=== PATIENT | female | born 1965 | race Caucasian/White ===

== ENCOUNTER 2017-10-20 12:55 | Outpatient (CLI) | payer OTHER ==
[2014-11-27 13:38] VITALS: BMI 61.9
== END 2017-10-20 12:56 | disposition home or self-care (01) ==
LOC: LAB 12:55
PROVIDERS: ATTEND Nurse Practitioner
DX: E03.9 Hypothyroidism, unspecified (principal); E11.40 Type 2 diabetes mellitus with diabetic neuropathy, unspecified; E53.8 Deficiency of other specified B group vitamins; E55.9 Vitamin D deficiency, unspecified; J01.90 Acute sinusitis, unspecified
CPT/HCPCS: 36415; 80053; 82043; 82306; 82607; 83036; 84443; 85025

== ENCOUNTER 2017-12-16 16:21 | Outpatient (CLI) ==
[2014-11-27 13:38] VITALS: BMI 61.9
== END 2017-12-16 16:22 | disposition home or self-care (01) ==
LOC: LAB 16:21
PROVIDERS: ATTEND Nurse Practitioner
DX: M25.50 Pain in unspecified joint (principal)
CPT/HCPCS: 36415; 84550; 85651; 86140; 86617

== ENCOUNTER 2018-04-04 07:45 | Outpatient (CLI) | payer OTHER ==
[2014-11-27 13:38] VITALS: BMI 61.9
--- NOTE | 2018-04-04 08:15 | DI ---
Exam: Three views of the right foot. Comparison: None available. Reason for exam: Foot pain. FINDINGS: No obvious fracture or malalignment is seen in the right foot. There is mild degenerative disease with calcaneal enthesiophyte formation. No unexpected calcific soft tissue density or radio paque retained foreign body. Impression: No acute fracture or dislocation is seen in the right foot with mild degenerative diseas e
== END 2018-04-04 07:46 | disposition home or self-care (01) ==
LOC: LAB 07:45
PROVIDERS: ATTEND Nurse Practitioner
DX: M79.671 Pain in right foot (principal); E03.9 Hypothyroidism, unspecified; E11.40 Type 2 diabetes mellitus with diabetic neuropathy, unspecified; E53.8 Deficiency of other specified B group vitamins; E55.9 Vitamin D deficiency, unspecified
CPT/HCPCS: 36415; 80048; 82306; 82607; 83036; 84439; 84443

== ENCOUNTER 2021-07-05 10:49 | Inpatient (IN) ==
--- NOTE | 2021-07-05 11:40 | ED.PDOC ---
General ED Provider: Dr. SWEETIE BADILLO Chief Complaint: Respiratory Complaint Stated Complaint: This 56-year-old female presents to the emergency room on the morning of July 05 complaining of a cough with green phlegm sputum production and nasal congestion. She states she has had a fever with the temperature is already up to 102 with associated diarrhea vomiting And abdominal pain. She has had associated chills shortness of air and generalized body aches States that her stomach arthur like it's on fire. States that she worked yesterday. States she has received both COVID Vaccines, most recent one last week. Time Seen by Provider: 07/05/21 11:40 Mode of Arrival: Walk-In Information Source: Patient Exam Limitations: No limitations Primary Care Provider: AJAY CHENG Nursing and Triage Documentation Reviewed and Agree: Yes Does patient meet sepsis criteria?: No System Inflammatory Response Syndrome: Not Applicable Sepsis Protocol: For patient's 13 years and over: Temp is 96.8 and below OR 101 and greater Pulse >90 BPM Resp >20/minute Acutely Altered Mental Status Are patient's symptoms suggestive of a new infection, such as: -Pneumonia -Skin, Soft Tissue -Endocarditis -UTI -Bone, Joint Infection -Implantable Device -Acute Abdominal Infection -Wound Infection -Meningitis -Blood Stream Catheter Infection -Unknown Review of Systems Review Of Systems Constitutional: Reports Diaphoresis, Weakness and Loss of appetite All Other Systems: Reviewed and Negative [facility] Medical History Diabetes mellitus Dysfunction of both eustachian tubes External otitis Hypothyroidism Sensorineural hearing loss (SNHL) of both ears TMJ (temporomandibular joint disorder) Social History Alcohol intake: never Substance use type: does not use Housing: house Seatbelt use: always 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 Water heater temperature set < 120 degrees: Yes Working smoke detector in home: Yes Fire extinguisher in home: Yes Carbon monoxide detector in home: Yes Surgical History History of section Mastoidectomy Status post endovenous radiofrequency ablation (RFA) of saphenous vein Female Reproductive History Menstrual Hx Hysterectomy: No Hx Tubal Ligation: Yes Physical Exam Physical Exam Appearance: Reports Ill-appearing and Obese Ill-appearing: Moderate Pain Distress: Moderate Eyes: Reports DENNY, EOMI and Conjunctiva clear ENT: Reports Ears normal, Nose normal and Oropharynx normal Neck: Supple Respiratory: Reports Airway patent, Breath sounds diminished and Respirations nonlabored Cardiovascular: Reports RRR, Pulses normal and No murmur GI/: Reports Soft, Tender and Other (morbidly obese) Musculoskeletal: Reports Normal strength Skin: Reports Warm and Dry Neurological: Reports Sensation intact, Motor intact, Reflexes intact, Cranial nerves intact, Alert and Oriented Psychiatric: Reports Affect appropriate Critical Care Note Critical Care Note Total Critical Care Time (mins): 60 Course Course Hematology/Chemistry: 07/05/21 11:55 07/05/21 11:55 Orders, Labs, Meds: Lab Review 07/05/21 07/05/21 07/05/21 11:55 11:55 12:02 WBC 8.15 RBC 5.14 Hgb 14.0 Hct 43.9 MCV 85.4 MCH 27.2 MCHC 31.9 RDW Coeff of Danny 15.9 H Plt Count 280 Immature Gran % (Auto) 0.5 Neut % (Auto) 73.9 Lymph % (Auto) 18.4 Floyd % (Auto) 6.4 Eos % (Auto) 0.4 Baso % (Auto) 0.4 Neut # (Auto) 6.0 Lymph # (Auto) 1.5 Floyd # (Auto) 0.5 Eos # (Auto) 0.0 Baso # (Auto) 0.0 Immature Gran # (Auto) 0.0 Puncture Site R rad Base Excess 3.2 H O2 Saturation 92.6 L ABG pH 7.47 H ABG pCO2 37.0 ABG pO2 61.0 L ABG HCO3 26.9 ABG Total CO2 28.0 H Donavan Test + Hemoglobin 0.6 Oxyhemoglobin 91.2 L Carboxyhemoglobin 0 L Total Hemoglobin 14.0 FiO2 % 21.0 Sodium 140.8 Potassium 3.75 Chloride 101.6 Carbon Dioxide 30.3 H Anion Gap 12.65 BUN 9.7 Creatinine 0.69 Estimated GFR (MDRD) 89.00 BUN/Creatinine Ratio 14.05 Glucose 161.4 H Calcium 8.87 Total Bilirubin 0.47 AST 56.8 H ALT 35.1 H Alkaline Phosphatase 104.8 Total Protein 7.91 Albumin 4.09 Globulin 3.82 Albumin/Globulin Ratio 1.07 Adenovirus (PCR) B. pertussis DNA (PCR) B.parapertussis DNA PCR C. pneumoniae DNA (PCR) Coronavirus OC43 (PCR) Coronavirus HKU1 (PCR) Coronavirus 229E (PCR) Coronavirus NL63 (PCR) Human Metapneumovir PCR Influenza Type A (PCR) Influenza B (RT-PCR) M. pneumoniae (PCR) Parainfluenza 1 (PCR) Parainfluenza 2 (PCR) Parainfluenza 3 (PCR) Parainfluenza 4 (PCR) RSV (PCR) Entero/Rhino (PCR) SARS-CoV-2 (PCR) 07/05/21 12:02 WBC RBC Hgb Hct MCV MCH MCHC RDW Coeff of Danny Plt Count Immature Gran % (Auto) Neut % (Auto) Lymph % (Auto) Floyd % (Auto) Eos % (Auto) Baso % (Auto) Neut # (Auto) Lymph # (Auto) Floyd # (Auto) Eos # (Auto) Baso # (Auto) Immature Gran # (Auto) Puncture Site Base Excess O2 Saturation ABG pH ABG pCO2 ABG pO2 ABG HCO3 ABG Total CO2 Donavan Test Hemoglobin Oxyhemoglobin Carboxyhemoglobin Total Hemoglobin FiO2 % Sodium Potassium Chloride Carbon Dioxide Anion Gap BUN Creatinine Estimated GFR (MDRD) BUN/Creatinine Ratio Glucose Calcium Total Bilirubin AST ALT Alkaline Phosphatase Total Protein Albumin Globulin Albumin/Globulin Ratio Adenovirus (PCR) Not detected B. pertussis DNA (PCR) Not detected B.parapertussis DNA PCR Not detected C. pneumoniae DNA (PCR) Not detected Coronavirus OC43 (PCR) Not detected Coronavirus HKU1 (PCR) Not detected Coronavirus 229E (PCR) Not detected Coronavirus NL63 (PCR) Not detected Human Metapneumovir PCR Not detected Influenza Type A (PCR) Not detected Influenza B (RT-PCR) Not detected M. pneumoniae (PCR) Not detected Parainfluenza 1 (PCR) Not detected Parainfluenza 2 (PCR) Not detected Parainfluenza 3 (PCR) Not detected Parainfluenza 4 (PCR) Not detected RSV (PCR) Not detected Entero/Rhino (PCR) Not detected SARS-CoV-2 (PCR) Detected H Orders Category Date Time Status ADMIT PATIENT INPATIENT .TO SCU (MONITORED BED) ADMISSION 07/05/21 15:21 Ordered ABG DRAW REQUEST Routine CARDIO 10/28/21 15:26 Ordered ABG DRAW REQUEST Stat CARDIO 07/05/21 11:43 Completed METERED DOSE INHALATION Routine CARDIO 07/05/21 11:44 Completed METERED DOSE INHALATION Routine CARDIO 07/05/21 15:28 Ordered OXYGEN Routine CARDIO 07/05/21 15:32 Ordered ACTIVITY .BR with BRP CARE 07/05/21 15:33 Ordered CONTINUOUS PULSE OX (NURSING) PULSEOX CARE 07/05/21 15:25 Ordered GIVE HS SNACK 2100 CARE 07/05/21 15:30 Ordered INTAKE & OUTPUT Q8HR CARE 07/05/21 15:33 Ordered TELEMETRY MONITORING TELE CARE 07/05/21 15:22 Ordered VITAL SIGNS Q4HR CARE 07/05/21 15:33 Ordered ADA 2200 FABI DIET DIETARY 07/05/21 Dinner Ordered HS SNACK DIETARY 07/05/21 Dinner Ordered ABG COOX Routine LAB 07/05/21 15:25 Ordered ABG COOX Stat LAB 07/05/21 12:02 Completed BLOOD CULTURE Routine LAB 07/05/21 15:34 Ordered C-REACTIVE PROTEIN Routine LAB 07/05/21 15:25 Ordered CBC W/ AUTO DIFF Stat LAB 07/05/21 11:55 Completed CMP [COMPREHENSIVE METABOLIC PANEL] Stat LAB 07/05/21 11:55 Completed D-DIMER Routine LAB 07/05/21 Ordered FERRITIN Routine LAB 07/05/21 Ordered Lactic Acid Dehydrogenase Routine LAB 07/05/21 Ordered PT WITH INR Routine LAB 07/05/21 15:25 Ordered RAPID STREP SCREEN [MOLECULAR GROUP A STREP] Stat LAB 07/05/21 11:41 Uncollected RESPIRATORY PANEL 2.1 (PCR) Stat LAB 07/05/21 12:02 Completed TROPONIN I Routine LAB 07/05/21 15:25 Ordered 1 gm/50 ml IV Daily Brandie MEDS 07/05/21 16:00 Ordered Ceftriaxone/D5w 1 gm Premix [Rocephin 1 gm/50 ml D5w] 1 gm in 50 ml IV DAILY Albuterol Inhaler(with Spacer) [Ventolin Hfa (Per Puff- MEDS 07/05/21 11:44 Discontinued with Spacer)] 2 puff IH ONCE STA Albuterol Inhaler(with Spacer) [Ventolin Hfa (Per Puff- MEDS 07/05/21 15:30 Ordered with Spacer)] 2 puff IH QID Azithromycin [Zithromax] MEDS 07/06/21 09:00 Ordered 500 mg PO DAILY Cholecalciferol (Vitamin D3) [Vitamin D] MEDS 07/05/21 15:30 Ordered 5,000 unit PO DAILY Dexamethasone Sod Phosphate [Decadron] MEDS 07/05/21 15:30 Ordered 6 mg IM DAILY Enoxaparin Sodium [Lovenox] MEDS 07/05/21 16:00 Ordered 40 mg SUBCUT DAILY Famotidine [Pepcid] MEDS 07/05/21 15:30 Ordered 40 mg PO BIDAC Ondansetron HCl/Pf [Zofran 4 mg/2 ml] MEDS 07/05/21 12:02 Discontinued 4 mg IVP ONCE STA Sodium Chloride 0.9% [Sodium Chloride] 1,000 ml MEDS 07/05/21 12:02 Discontinued IV BOLUS Zinc Sulfate [Zinc-220] MEDS 07/05/21 15:30 Ordered 220 mg PO DAILY RESUSCITATION STATUS Routine OTHERS 07/05/21 15:32 Ordered CHEST, 1V AP ONLY Stat RADS 07/05/21 12:[address] ABDOMEN/PELVIS WO CONTRAST Stat RADS 07/05/21 12:[address] CHEST W/O CONTRAST Stat RADS 07/05/21 12:02 Completed Medications Generic Name Dose Route Start Last Admin Trade Name Freq PRN Reason Stop Dose Admin Albuterol Sulfate 2 puff 07/05/21 15:30 Albuterol Sulfate (Ventolin Hfa) 18 Gm 1 Puff With Spacer IH QID BRANDIE Cholecalciferol 5,000 unit 07/05/21 15:30 Cholecalciferol (Vitamin D3) 1,000 Unit (25 Mcg) Tablet PO DAILY [facility] Dexamethasone Sodium Phosphate 6 mg 07/05/21 15:30 Dexamethasone Sod Phos 10 Mg/Ml Inj IM DAILY BRANDIE Famotidine 40 mg 07/05/21 15:30 Famotidine 20 Mg Tablet PO BIDAC BRANDIE Zinc Sulfate 220 mg 07/05/21 15:30 Zinc Sulfate 220 Mg Capsule PO DAILY BRANDIE Discontinued Medications Generic Name Dose Route Start Last Admin Trade Name Freq PRN Reason Stop Dose Admin Albuterol Sulfate 2 puff 07/05/21 11:44 07/05/21 12:25 Albuterol Sulfate (Ventolin Hfa) 18 Gm 1 Puff With Spacer IH 07/05/21 11:45 2 puff ONCE STA Administration Sodium Chloride 1,000 mls @ 1,000 mls/hr 07/05/21 12:02 07/05/21 13:03 Sodium Chloride IV 07/05/21 13:01 1,000 mls/hr BOLUS STA Administration Ondansetron HCl 4 mg 07/05/21 12:02 07/05/21 13:02 Ondansetron Hcl/Pf 4 Mg/2 Ml Sdv IVP 07/05/21 12:03 4 mg ONCE STA Administration Vital Signs: Temp Pulse Resp BP Pulse Ox 07/05/21 11:40 99.4 F 87 20 136/70 88 L Discharge Plan Discharge Patient Disposition: ADMITTED INPATIENT Discharge Problem: Pneumonia, COVID-19 Prescriptions: No Action levothyroxine [Synthroid] 100 MCG tablet 100 mcg PO DAILY RF: 0 metformin 500 MG tablet,ER mary alice.retention 24 hr 500 mg PO BID RF: 0 hydrocodone-acetaminophen 10-325 mg tablet 1 tab PO QID PRN (Reason: Pain) RF: 0 gabapentin 300 mg capsule 300 mg PO DAILY RF: 0 omeprazole 20 mg capsule,delayed release(DR/EC) 20 mg PO DAILY RF: 0 diclofenac sodium 75 mg Tablet,Delayed Release (Dr/Ec) 75 mg PO BID RF: 0 furosemide 20 mg tablet 40 mg PO DAILY RF: 0 polyethylene glycol 3350 17 gram/dose powder 17 g PO DAILY PRN (Reason: Constipation) RF: 0 docusate sodium [Doculace] 100 mg Capsule 100 - 300 mg PO BEDTIME PRN (Reason: Constipation) RF: 0 gabapentin 300 mg capsule 600 mg PO BEDTIME RF: 0 ergocalciferol (vitamin D2) [Vitamin D2] 1,250 mcg (50,000 unit) capsule 50,000 unit PO WEEKLY RF: 0 insulin aspart U-100 [Novolog Flexpen U-100 Insulin] 100 unit/mL (3 mL) insulin pen 5 unit SUBCUT TID PRN (Reason: Hyperglycemia) RF: 0 Basaglar KwikPen U-100 Insulin 100 unit/mL (3 mL) insulin pen 24 unit SUBCUT QDAY RF: 0 diazepam 5 mg tablet 10 mg PO Q6-8H PRN (Reason: tmj) Qty: 90 RF: 3 ED Provider: SWEETIE BADILLO Condition: Stable Physician Progress Note: []
[2021-07-05] MEDS ORDERED: VENTOLIN HFA (PER PUFF-WITH SPACER) IH STA (11:44)
[2021-07-05 12:02] LABS: BASOPHILS % (AUTO) 0.4 % (0.0-3.0); EOSINOPHILS % (AUTO) 0.4 % (0.0-7.0); HEMATOCRIT 43.9 % (37.0-47.0); IMMATURE GRANULOCYTE % (AUTO) 0.5 % (0.0-5.0); LYMPHOCYTES # (AUTO) 1.5 K/uL (0.60-3.4); LYMPHOCYTES % (AUTO) 18.4 (10.0-50.0); MEAN CORPUSCULAR HEMOGLOBIN 27.2 pg (27.0-31.0); MEAN CORPUSCULAR HGB CONC 31.9 (31.8-35.4); MEAN CORPUSCULAR VOLUME 85.4 fl (81.0-99.0); MONOCYTES # (AUTO) 0.5 K/uL (0.4-2.0); MONOCYTES % (AUTO) 6.4 (0-10); NEUTROPHILS % (AUTO) 73.9 % (42.2-75.2); PLATELET COUNT 280 10^3/uL (140-440); RDW COEFFICIENT OF VARIATION 15.9 % (11.6-14.8); RED BLOOD COUNT 5.14 10^6/ul (4.20-5.40); WHITE BLOOD COUNT 8.15 K/ul (4.6-10.2)
[2021-07-05] MEDS ORDERED: SODIUM CHLORIDE 1,000 ML IV STA (12:02)
[2021-07-05] MEDS ORDERED: ZOFRAN 4 MG/2 ML IVP STA (12:02)
[2021-07-05 12:09] LABS: BORDETELLA PARAPERTUSSIS (PCR) NOT DETECTED (NOT DETECT); BORDETELLA PERTUSSIS (PCR) NOT DETECTED (NOT DETECT); CHLAMYDIA PNEUMONIAE (PCR) NOT DETECTED (NOT DETECT); CORONAVIRUS 229E (PCR) NOT DETECTED (NOT DETECT); CORONAVIRUS HKU1 (PCR) NOT DETECTED (NOT DETECT); CORONAVIRUS NL63 (PCR) NOT DETECTED (NOT DETECT); CORONAVIRUS OC43 (PCR) NOT DETECTED (NOT DETECT); HUMAN METAPNEUMOVIRUS (PCR) NOT DETECTED (NOT DETECT); HUMAN RHINOVIRUS/ENTEROV (PCR) NOT DETECTED (NOT DETECT); INFLUENZA B (PCR) NOT DETECTED (NOT DETECT); MYCOPLASMA PNEUMONIAE (PCR) NOT DETECTED (NOT DETECT); PARAINFLUENZA VIRUS 1 (PCR) NOT DETECTED (NOT DETECT); PARAINFLUENZA VIRUS 2 (PCR) NOT DETECTED (NOT DETECT); PARAINFLUENZA VIRUS 3 (PCR) NOT DETECTED (NOT DETECT); PARAINFLUENZA VIRUS 4 (PCR) NOT DETECTED (NOT DETECT); RESPIRATORY SYNCYTIAL V (PCR) NOT DETECTED (NOT DETECT)
[2021-07-05 12:14] LABS: ALANINE AMINOTRANSFERASE 35.1 U/L (0-35); ALBUMIN 4.09 g/dL (3.5-5.0); ALKALINE PHOSPHATASE 104.8 U/L (38-126); ASPARTATE AMINO TRANSFERASE 56.8 U/L (14-36); BILIRUBIN,TOTAL 0.47 mg/dL (0.2-1.3); BLOOD UREA NITROGEN 9.7 mg/dL (7-17); CALCIUM 8.87 mg/dL (8.4-10.2); CARBON DIOXIDE 30.3 mmol/L (22-30.0); CHLORIDE 101.6 mmol/L (98-107); CREATININE 0.69 mg/dL (0.60-1.30); GLUCOSE 161.4 mg/dL (74-106); POTASSIUM 3.75 mmol/L (3.5-5.1); SODIUM 140.8 mmol/L (134.5-145); TOTAL PROTEIN 7.91 g/dL (6.3-8.2)
--- NOTE | 2021-07-05 12:19 | DI ---
EXAM: Chest one view HISTORY: Shortness of breath COMPARISON: 08/14/2020 TECHNIQUE: Single view of the chest was performed FINDINGS: Bilateral bronchovascular prominence. There is no pleural effusion or pneumothorax. The heart is borderline enlarged in size. The mediastinal contour is normal. There are no acute abnorma lities of the bones. IMPRESSION: Bilateral bronchovascular prominence could relate to mild pulmonary vascular congestion or interstitial pneumonitis.
[2021-07-05 12:20] LABS: ABG PH 7.47 (7.35-7.45); BEecf 3.2 (-2.0-3.0); COHb 0 (0.5-1.5); HCO3 26.9 (21-28); MetHb 0.6 (0-1.5)
[2021-07-05 12:21] LABS: ABG O2 HGB 91.2 % (95-100); sO2 92.6 % (94-98)
[2021-07-05 12:56] LABS: ADENOVIRUS (PCR) NOT DETECTED (NOT DETECT)
[2021-07-05 13:05] LABS: SARS_COV_2 (PCR) DETECTED (NOT DETECT)
--- NOTE | 2021-07-05 13:08 | CT ---
EXAM: CT chest without contrast. HISTORY: Cough, dyspnea. COMPARISON: Radiograph earlier the same day. TECHNIQUE: Multiple axial images of the chest were obtained without intravenous contrast. Images we re reformatted in the sagittal and coronal planes. FINDINGS: Limited assessment for lymphadenopathy without contrast. Heart size normal. Trace pericardial effusion. No coronary artery calcifications. Multifocal nodular consolidation throughout both lungs, greatest in the right lower lobe. Difficult to exclude some areas of cavitation, although this is uncertain. There are no pleural effusion or pn eumothorax. Limited images of the upper abdomen demonstrate fatty liver. No acute osseous abnormality. Degenerative changes in the spine. IMPRESSION: Bilateral pneumonia. Difficult to exclude areas of cavitation. Correlate for atypical infectious pr ocess. Follow-up in 4-6 weeks recommended for reassessment All CT scans are performed using dose optimization techniques as appropriate to the performed exam an d include at least one of the following: Automated exposure control, adjustment of the mA and/or kV according t o size, and the use of iterative reconstruction technique.
--- NOTE | 2021-07-05 13:10 | CT ---
EXAM: CT abdomen pelvis without contrast HISTORY: Pain, nausea, vomiting, diarrhea COMPARISON: None TECHNIQUE: CT abdomen pelvis performed without intravenous contrast. Coronal and sagittal reformatt ed images obtained. FINDINGS: Please refer to separate report CT chest regarding findings in the lower chest, noting num erous bilateral nodular infiltrates. Motion artifact limits evaluation. No free air. No acute abno rmalities of the bones. Degenerative change in the spine. Liver is enlarged. Liver diffusely decre ased in attenuation. Patient status post cholecystectomy. Pancreas unremarkable. Spleen unremarkab le. Adrenals unremarkable. No hydronephrosis or nephrolithiasis. No calculi visualized in normal c ourse of the ureters. Bladder unremarkable. Aorta normal in caliber. Mild atherosclerosis. Cystic lesion near the midline pelvis that likely arises from the right ovary and measures 7.0 x 4.0 cm. T his may have a internal septation. No lymphadenopathy or ascites. Small hiatal hernia. No dilated loops small bowel. Appendix appears normal. Colon unremarkable. IMPRESSION: 1. No acute inflammatory process identified in the abdomen or pelvis. 2. 7 cm pelvic cystic lesion, likely arising from the right ovary and may be complicated. This is a bnormally enlarged. Recommend correlation with transabdominal and transvaginal pelvic ultrasound as the next step in evaluation. Recommend gynecologic consultation 3. Hepatic steatosis. Hepatomegaly. 4. Small hiatal hernia. All CT scans are performed using dose optimization techniques as appropriate to the performed exam an d include at least one of the following: Automated exposure control, adjustment of the mA and/or kV according t o size, and the use of iterative reconstruction technique.
[2021-07-05] MEDS ORDERED: DECADRON IM SCH (15:30)
[2021-07-05] MEDS ORDERED: VENTOLIN HFA (PER PUFF-WITH SPACER) IH SCH (15:30)
[2021-07-05 16:08] LABS: ABG PH 7.52 (7.35-7.45)
[2021-07-05 16:10] LABS: BEecf 2.4 (-2.0-3.0); COHb 4.2 (0.5-1.5); HCO3 25.3 (21-28); MetHb 0.2 (0-1.5); TCO2 26.3 (19-24); sO2 99.8 % (94-98); tHb 13.5 g/dl (11.7-17.4)
[2021-07-05 16:25] LABS: PROTHROMBIN TIME 9.9 SEC (9.3-11.0)
[2021-07-05 17:27] VITALS: BMI 59.7
[2021-07-05] MEDS: ZINC-220 PO SCH (17:56)
[2021-07-05] MEDS: VITAMIN D PO SCH (17:56)
[2021-07-05] MEDS: ZITHROMAX PO SCH (17:56)
[2021-07-05] MEDS: PEPCID PO SCH ×2 (17:56→17:57)
[2021-07-05] MEDS: LOVENOX SUBCUT SCH (17:57)
[2021-07-05] MEDS: ROCEPHIN 1 GM/50 ML D5W 1 GM/50 ML BAG IV SCH (17:57)
[2021-07-05] MEDS: VENTOLIN HFA (PER PUFF-WITH SPACER) IH SCH (19:50)
[2021-07-05] MEDS: VEKLURY 200 MG in SODIUM CHLORIDE 250 ML IV ONE ×2 (20:03→21:10)
[2021-07-05] MEDS ORDERED: NORCO 10-325 PO PRN (21:52)
[2021-07-05] MEDS ORDERED: LASIX TAB PO PRN (21:52)
[2021-07-05] MEDS ORDERED: IMODIUM PO STA (21:59)
[2021-07-05] MEDS ORDERED: LACTATED RINGERS 1,000 ML IV SCH (22:00)
[2021-07-05] MEDS: ZOFRAN 4 MG/2 ML IVP PRN (22:16)
[2021-07-05] MEDS: SODIUM CHLORIDE 1,000 ML IV SCH (23:44)
[2021-07-06] MEDS: IMODIUM PO PRN ×2 (04:00→10:43)
[2021-07-06] MEDS: VENTOLIN HFA (PER PUFF-WITH SPACER) IH SCH ×4 (04:30→19:00)
[2021-07-06 04:44] LABS: ABG PH 7.34 (7.35-7.45); BEecf -0.4 (-2.0-3.0); COHb 0 (0.5-1.5); HCO3 25.4 (21-28)
[2021-07-06 04:45] LABS: MetHb 0.4 (0-1.5); TCO2 26.8 (19-24); sO2 94.2 % (94-98); tHb 21.4 g/dl (11.7-17.4)
[2021-07-06 04:46] LABS: ABG O2 HGB 92.5 % (95-100)
[2021-07-06 05:42] LABS: BASOPHILS % (AUTO) 0.2 % (0.0-3.0); HEMATOCRIT 39.5 % (37.0-47.0); HEMOGLOBIN 12.1 g/dl (12.0-16.0); IMMATURE GRANULOCYTE % (AUTO) 0.4 % (0.0-5.0); LYMPHOCYTES # (AUTO) 0.8 K/uL (0.60-3.4); LYMPHOCYTES % (AUTO) 17.1 (10.0-50.0); MEAN CORPUSCULAR HEMOGLOBIN 26.5 pg (27.0-31.0); MEAN CORPUSCULAR HGB CONC 30.6 (31.8-35.4); MEAN CORPUSCULAR VOLUME 86.6 fl (81.0-99.0); MONOCYTES # (AUTO) 0.2 K/uL (0.4-2.0); MONOCYTES % (AUTO) 5.3 (0-10); NEUTROPHILS # (AUTO) 3.5 K/ul (2.0-6.9); PLATELET COUNT 240 10^3/uL (140-440); RED BLOOD COUNT 4.56 10^6/ul (4.20-5.40); WHITE BLOOD COUNT 4.57 K/ul (4.6-10.2)
[2021-07-06 05:58] LABS: ALANINE AMINOTRANSFERASE 29.5 U/L (0-35); ALKALINE PHOSPHATASE 85.5 U/L (38-126); ASPARTATE AMINO TRANSFERASE 45.9 U/L (14-36); BILIRUBIN,TOTAL 0.32 mg/dL (0.2-1.3); BLOOD UREA NITROGEN 9.1 mg/dL (7-17); CALCIUM 8.03 mg/dL (8.4-10.2); CARBON DIOXIDE 27.6 mmol/L (22-30.0); CHLORIDE 106.1 mmol/L (98-107); CREATININE 0.63 mg/dL (0.60-1.30); POTASSIUM 3.76 mmol/L (3.5-5.1); SODIUM 140.6 mmol/L (134.5-145); TOTAL PROTEIN 6.79 g/dL (6.3-8.2)
[2021-07-06] MEDS: PEPCID PO SCH ×2 (06:17→17:19)
[2021-07-06] MEDS: SODIUM CHLORIDE 1,000 ML IV SCH ×2 (06:17→16:16)
[2021-07-06] MEDS: SYNTHROID PO SCH (06:17)
[2021-07-06 06:33] LABS: PROTHROMBIN TIME 9.7 SEC (9.3-11.0)
[2021-07-06 06:37] LABS: TROPONIN I < 0.012 ng/ml (0.0000-0.120)
[2021-07-06] MEDS: ROCEPHIN 1 GM/50 ML D5W 1 GM/50 ML BAG IV SCH (08:08)
[2021-07-06] MEDS: VITAMIN D PO SCH (08:09)
[2021-07-06] MEDS: NEURONTIN PO SCH ×2 (08:10→20:52)
[2021-07-06] MEDS: ZINC-220 PO SCH (08:10)
[2021-07-06] MEDS: ZITHROMAX PO SCH (08:10)
[2021-07-06] MEDS: LOVENOX SUBCUT SCH (08:10)
[2021-07-06] MEDS: DECADRON IVP SCH (08:14)
[2021-07-06] MEDS: ZOFRAN 4 MG/2 ML IVP PRN (08:38)
[2021-07-06] MEDS ORDERED: PHENERGAN TAB PO PRN (09:39)
[2021-07-06] MEDS: BENTYL PO SCH ×4 (10:43→20:52)
[2021-07-06] MEDS: PROTONIX PO SCH (10:44)
[2021-07-06] MEDS: VEKLURY 100 MG in SODIUM CHLORIDE 250 ML IV SCH (11:09)
[2021-07-06] MEDS: HUMULIN R SUBCUT PRN ×3 (12:23→20:58)
--- NOTE | 2021-07-06 15:44 | PCM.PROG ---
Date Seen by Provider: 07/06/21 Time Seen by Provider: 10:00 Subjective: Breathing not too much trouble, more GI issues with nausea and diarrhea. Objective: Vitals: T=97.8 F, P=67, R=20, ZW=091/67, SPO2=87 HEENT: [WNL] Neck: WNL Lungs: rhonchi, no wheezes CVS: [RRR, no m] Abdomen: [obese, soft] Extremities: [intact] Neurological: [intact] Skin: [wnl] Lab/Tests/Diagnostic Imaging: [see chart, no acute problems of concern] (1) Pneumonia due to COVID-19 virus: Status: Acute Code(s): U07.1 - COVID-19; J12.82 - Pneumonia due to coronavirus disease 2019 SNOMED Code(s): 649138829336869586 Assessment: Maintaining good oxygen levels on 2 L per NC. Good air movement. Plan: Continue same treatment plan, monitor labs.
[2021-07-07] MEDS: SODIUM CHLORIDE 1,000 ML IV SCH ×4 (00:04→21:04)
[2021-07-07] MEDS: VENTOLIN HFA (PER PUFF-WITH SPACER) IH SCH ×4 (04:40→20:00)
[2021-07-07 04:41] LABS: ABG O2 HGB 95.4 % (95-100); ABG PH 7.43 (7.35-7.45); BEecf 1.6 (-2.0-3.0); COHb 0 (0.5-1.5); HCO3 25.9 (21-28); MetHb 0 (0-1.5); TCO2 27.1 (19-24); sO2 97.7 % (94-98); tHb 11.2 g/dl (11.7-17.4)
[2021-07-07 05:27] LABS: HEMATOCRIT 37.5 % (37.0-47.0); HEMOGLOBIN 11.8 g/dl (12.0-16.0); IMMATURE GRANULOCYTE % (AUTO) 0.7 % (0.0-5.0); LYMPHOCYTES # (AUTO) 1.2 K/uL (0.60-3.4); MEAN CORPUSCULAR HEMOGLOBIN 27.1 pg (27.0-31.0); MEAN CORPUSCULAR HGB CONC 31.5 (31.8-35.4); MEAN CORPUSCULAR VOLUME 86.2 fl (81.0-99.0); MONOCYTES # (AUTO) 0.5 K/uL (0.4-2.0); MONOCYTES % (AUTO) 8.6 (0-10); NEUTROPHILS # (AUTO) 4.1 K/ul (2.0-6.9); NEUTROPHILS % (AUTO) 69.9 % (42.2-75.2); PLATELET COUNT 250 10^3/uL (140-440); RDW COEFFICIENT OF VARIATION 16.2 % (11.6-14.8); RED BLOOD COUNT 4.35 10^6/ul (4.20-5.40)
[2021-07-07 05:45] LABS: ALBUMIN 3.12 g/dL (3.5-5.0); ALKALINE PHOSPHATASE 77.1 U/L (38-126); ASPARTATE AMINO TRANSFERASE 37.4 U/L (14-36); BLOOD UREA NITROGEN 9.2 mg/dL (7-17); CALCIUM 8.15 mg/dL (8.4-10.2); CARBON DIOXIDE 25.6 mmol/L (22-30.0); CHLORIDE 109.2 mmol/L (98-107); CREATININE 0.66 mg/dL (0.60-1.30); GLUCOSE 183.3 mg/dL (74-106); POTASSIUM 3.53 mmol/L (3.5-5.1); SODIUM 142.4 mmol/L (134.5-145); TOTAL PROTEIN 6.33 g/dL (6.3-8.2)
[2021-07-07 06:05] LABS: LYMPHOCYTES % (AUTO) 20.8 (10.0-50.0)
[2021-07-07 06:23] LABS: TROPONIN I < 0.012 ng/ml (0.0000-0.120)
[2021-07-07] MEDS: PEPCID PO SCH ×2 (06:28→16:37)
[2021-07-07] MEDS: BENTYL PO SCH ×4 (06:29→21:00)
[2021-07-07] MEDS: HUMULIN R SUBCUT PRN ×4 (06:29→21:01)
[2021-07-07] MEDS: PROTONIX PO SCH (06:29)
[2021-07-07] MEDS: SYNTHROID PO SCH (06:30)
[2021-07-07 06:58] LABS: PROTHROMBIN TIME 10.4 SEC (9.3-11.0)
[2021-07-07] MEDS: ROCEPHIN 1 GM/50 ML D5W 1 GM/50 ML BAG IV SCH (08:02)
[2021-07-07] MEDS: DECADRON IVP SCH (08:06)
[2021-07-07 08:17] LABS: C-REACTIVE PROTEIN 24 mg/L (0-10)
[2021-07-07] MEDS: NEURONTIN PO SCH ×2 (09:10→21:00)
[2021-07-07] MEDS: ZINC-220 PO SCH (09:10)
[2021-07-07] MEDS: VITAMIN D PO SCH (09:10)
[2021-07-07] MEDS: ZITHROMAX PO SCH (09:10)
[2021-07-07] MEDS: LOVENOX SUBCUT SCH (09:11)
[2021-07-07] MEDS: VEKLURY 100 MG in SODIUM CHLORIDE 250 ML IV SCH (11:45)
[2021-07-07] MEDS: ROBITUSSIN DM SYRUP PO PRN (21:43)
[2021-07-08] MEDS: VENTOLIN HFA (PER PUFF-WITH SPACER) IH SCH ×4 (04:30→19:35)
[2021-07-08 05:57] LABS: HEMATOCRIT 39.4 % (37.0-47.0); MEAN CORPUSCULAR HEMOGLOBIN 26.4 pg (27.0-31.0); MEAN CORPUSCULAR HGB CONC 30.5 (31.8-35.4); MEAN CORPUSCULAR VOLUME 86.8 fl (81.0-99.0); PLATELET COUNT 260 10^3/uL (140-440); RDW COEFFICIENT OF VARIATION 16.1 % (11.6-14.8); RED BLOOD COUNT 4.54 10^6/ul (4.20-5.40); WHITE BLOOD COUNT 6.73 K/ul (4.6-10.2)
[2021-07-08 06:08] LABS: ALANINE AMINOTRANSFERASE 29.2 U/L (0-35); ALBUMIN 3.1 g/dL (3.5-5.0); ALKALINE PHOSPHATASE 71.8 U/L (38-126); ASPARTATE AMINO TRANSFERASE 35.9 U/L (14-36); BILIRUBIN,TOTAL 0.29 mg/dL (0.2-1.3); BLOOD UREA NITROGEN 11.7 mg/dL (7-17); CALCIUM 8.2 mg/dL (8.4-10.2); CARBON DIOXIDE 26.3 mmol/L (22-30.0); CHLORIDE 109.5 mmol/L (98-107); CREATININE 0.69 mg/dL (0.60-1.30); GLUCOSE 175.9 mg/dL (74-106); POTASSIUM 3.74 mmol/L (3.5-5.1); TOTAL PROTEIN 6.27 g/dL (6.3-8.2)
[2021-07-08 06:09] LABS: PROTHROMBIN TIME 10.4 SEC (9.3-11.0)
[2021-07-08] MEDS: SODIUM CHLORIDE 1,000 ML IV SCH ×3 (06:21→22:48)
[2021-07-08] MEDS: BENTYL PO SCH ×4 (06:24→20:50)
[2021-07-08] MEDS: HUMULIN R SUBCUT PRN ×4 (06:24→20:51)
[2021-07-08] MEDS: PROTONIX PO SCH (06:24)
[2021-07-08] MEDS: PEPCID PO SCH ×2 (06:24→17:32)
[2021-07-08 06:42] LABS: FERRITIN 54.1 ng/mL (11.1-264.0)
[2021-07-08 06:55] LABS: ANISOCYTOSIS NOT PRESENT (NOT PRESENT)
[2021-07-08] MEDS: ROCEPHIN 1 GM/50 ML D5W 1 GM/50 ML BAG IV SCH (09:13)
[2021-07-08] MEDS: ZINC-220 PO SCH (09:14)
[2021-07-08] MEDS: VITAMIN D PO SCH (09:14)
[2021-07-08] MEDS: DECADRON IVP SCH (09:14)
[2021-07-08] MEDS: NEURONTIN PO SCH ×2 (09:14→20:51)
[2021-07-08] MEDS: SYNTHROID PO SCH (09:17)
[2021-07-08] MEDS: LOVENOX SUBCUT SCH (09:18)
[2021-07-08] MEDS: VEKLURY 100 MG in SODIUM CHLORIDE 250 ML IV SCH (12:26)
[2021-07-08] MEDS: ROBITUSSIN DM SYRUP PO PRN (13:49)
[2021-07-09] MEDS: VENTOLIN HFA (PER PUFF-WITH SPACER) IH SCH ×4 (04:25→20:15)
[2021-07-09 05:30] LABS: HEMATOCRIT 39.2 % (37.0-47.0); HEMOGLOBIN 12.2 g/dl (12.0-16.0); MEAN CORPUSCULAR HEMOGLOBIN 26.9 pg (27.0-31.0); MEAN CORPUSCULAR HGB CONC 31.1 (31.8-35.4); MEAN CORPUSCULAR VOLUME 86.3 fl (81.0-99.0); PLATELET COUNT 254 10^3/uL (140-440); RED BLOOD COUNT 4.54 10^6/ul (4.20-5.40); WHITE BLOOD COUNT 6.34 K/ul (4.6-10.2)
[2021-07-09] MEDS: PROTONIX PO SCH (05:46)
[2021-07-09] MEDS: PEPCID PO SCH ×2 (05:46→17:17)
[2021-07-09] MEDS: BENTYL PO SCH ×4 (05:47→20:16)
[2021-07-09] MEDS: SYNTHROID PO SCH (05:47)
[2021-07-09 05:48] LABS: ALANINE AMINOTRANSFERASE 28.7 U/L (0-35); ALBUMIN 3.04 g/dL (3.5-5.0); ALKALINE PHOSPHATASE 69.7 U/L (38-126); ANISOCYTOSIS NOT PRESENT (NOT PRESENT); ASPARTATE AMINO TRANSFERASE 31.9 U/L (14-36); BILIRUBIN,TOTAL 0.27 mg/dL (0.2-1.3); CALCIUM 7.97 mg/dL (8.4-10.2); CARBON DIOXIDE 28.2 mmol/L (22-30.0); CHLORIDE 107.2 mmol/L (98-107); CREATININE 0.69 mg/dL (0.60-1.30); POTASSIUM 3.89 mmol/L (3.5-5.1); SODIUM 139.6 mmol/L (134.5-145); TOTAL PROTEIN 6.01 g/dL (6.3-8.2)
[2021-07-09 06:03] LABS: PROTHROMBIN TIME 10.4 SEC (9.3-11.0)
[2021-07-09] MEDS: HUMULIN R SUBCUT PRN ×4 (06:12→20:32)
[2021-07-09 06:20] LABS: FERRITIN 37.9 ng/mL (11.1-264.0)
[2021-07-09] MEDS: ROCEPHIN 1 GM/50 ML D5W 1 GM/50 ML BAG IV SCH (08:28)
[2021-07-09] MEDS: ZINC-220 PO SCH (08:51)
[2021-07-09] MEDS: VITAMIN D PO SCH (08:52)
[2021-07-09] MEDS: NEURONTIN PO SCH ×2 (08:52→20:15)
[2021-07-09] MEDS: DECADRON IVP SCH (08:54)
[2021-07-09] MEDS: LOVENOX SUBCUT SCH (08:58)
--- NOTE | 2021-07-09 10:49 | PN ---
DATE OF VISIT: 07/08/2021 SUBJECTIVE: Ana is admitted with COVID pneumonia. She says that her breathing is "just fine". She has no complaints this morning. No nursing staff concerns. OBJECTIVE: VITALS: Temperature 98.8, pulse 90, respiratory rate 25, blood pressure 130/90. REVIEW OF SYSTEMS: Denies headaches, visual changes, tinnitus or chest pain. Positive for shortness of breath with exertion. No hemoptysis, abdominal pain, blood in the stool, urinary symptoms or seizures. PHYSICAL EXAMINATION: HEENT: Pupils are round. NECK: Supple. CHEST: Scattered rhonchi. CARDIOVASCULAR: Regular rate and rhythm. ABDOMEN: Soft, nontender. Obese. EXTREMITIES: Distal extremities without cyanosis or edema. IMPRESSION: 1. COVID pneumonia PLAN: 1. She seems to have good oxygenation 2. Check Labs in AM 3. I think tomorrow is her last day of Remdesivir MTDD
[2021-07-09] MEDS: VEKLURY 100 MG in SODIUM CHLORIDE 250 ML IV SCH (11:51)
[2021-07-09 12:16] LABS: C-REACTIVE PROTEIN 4 mg/L (0-10)
--- NOTE | 2021-07-09 18:56 | PCM.PROG ---
Date Seen by Provider: 07/09/21 Time Seen by Provider: 10:00 Subjective: Feeling better, wants to go home, today is last remdesivir dose. Objective: Vitals: T=97.6 F, P=55, R=24, FM=573/79, SPO2=94 HEENT: [WNL] Neck: [supple] Lungs: Few rhonchi, o/w clear[] CVS: RRR, no m Abdomen: [soft, obese] Extremities: [intact] Neurological: [intact] Skin: intact] Lab/Tests/Diagnostic Imaging: [Labs unremarkable.] (1) Pneumonia due to COVID-19 virus: Status: Acute Code(s): U07.1 - COVID-19; J12.82 - Pneumonia due to coronavirus disease 2019 SNOMED Code(s): 330416313691693859 Assessment: COVID pneumonia, improving, still oxygen dependent at 2 L per NC Plan: 3 step pulse ox test to see if can be d/c since remdesivir completed. If not, can perhaps arrange home oxygen.
[2021-07-09] MEDS: SODIUM CHLORIDE 1,000 ML IV SCH (20:02)
[2021-07-10 05:26] LABS: BASOPHILS % (AUTO) 0.2 % (0.0-3.0); EOSINOPHILS % (AUTO) 0.1 % (0.0-7.0); HEMATOCRIT 38.2 % (37.0-47.0); IMMATURE GRANULOCYTE # (AUTO) 0.1 (0.0-1.0); IMMATURE GRANULOCYTE % (AUTO) 1.3 % (0.0-5.0); LYMPHOCYTES # (AUTO) 1.7 K/uL (0.60-3.4); LYMPHOCYTES % (AUTO) 19.7 (10.0-50.0); MEAN CORPUSCULAR HEMOGLOBIN 26.8 pg (27.0-31.0); MEAN CORPUSCULAR HGB CONC 31.4 (31.8-35.4); MEAN CORPUSCULAR VOLUME 85.5 fl (81.0-99.0); MONOCYTES # (AUTO) 0.6 K/uL (0.4-2.0); MONOCYTES % (AUTO) 6.7 (0-10); NEUTROPHILS # (AUTO) 6.1 K/ul (2.0-6.9); PLATELET COUNT 267 10^3/uL (140-440); RDW COEFFICIENT OF VARIATION 15.9 % (11.6-14.8); RED BLOOD COUNT 4.47 10^6/ul (4.20-5.40); WHITE BLOOD COUNT 8.46 K/ul (4.6-10.2)
[2021-07-10 05:39] LABS: ALANINE AMINOTRANSFERASE 27.7 U/L (0-35); ALBUMIN 3.17 g/dL (3.5-5.0); ALKALINE PHOSPHATASE 67.2 U/L (38-126); ASPARTATE AMINO TRANSFERASE 27.7 U/L (14-36); BILIRUBIN,TOTAL 0.25 mg/dL (0.2-1.3); BLOOD UREA NITROGEN 17.1 mg/dL (7-17); CALCIUM 8.19 mg/dL (8.4-10.2); CARBON DIOXIDE 28.7 mmol/L (22-30.0); CREATININE 0.79 mg/dL (0.60-1.30); GLUCOSE 225.6 mg/dL (74-106); POTASSIUM 4.1 mmol/L (3.5-5.1); SODIUM 140.1 mmol/L (134.5-145); TOTAL PROTEIN 6.2 g/dL (6.3-8.2)
[2021-07-10 05:43] LABS: PROTHROMBIN TIME 10.4 SEC (9.3-11.0)
[2021-07-10] MEDS: BENTYL PO SCH (05:49)
[2021-07-10] MEDS: SYNTHROID PO SCH (05:50)
[2021-07-10] MEDS: PEPCID PO SCH (05:50)
[2021-07-10] MEDS: PROTONIX PO SCH (05:50)
[2021-07-10] MEDS: SODIUM CHLORIDE 1,000 ML IV SCH (05:51)
[2021-07-10] MEDS: HUMULIN R SUBCUT PRN (05:55)
[2021-07-10 06:10] VITALS: BP 145/69; TEMP 97.3
[2021-07-10 06:14] LABS: FERRITIN 31.2 ng/mL (11.1-264.0)
[2021-07-10 06:31] LABS: C-REACTIVE PROTEIN 2 mg/L (0-10)
[2021-07-10] MEDS: VENTOLIN HFA (PER PUFF-WITH SPACER) IH SCH ×2 (07:00→10:30)
[2021-07-10] MEDS: ROCEPHIN 1 GM/50 ML D5W 1 GM/50 ML BAG IV SCH (09:21)
[2021-07-10] MEDS: DECADRON IVP SCH (09:21)
[2021-07-10] MEDS: VITAMIN D PO SCH (09:31)
[2021-07-10] MEDS: NEURONTIN PO SCH (09:31)
[2021-07-10] MEDS: ZINC-220 PO SCH (09:31)
[2021-07-10] MEDS: LOVENOX SUBCUT SCH (09:31)
--- NOTE | 2021-07-10 09:42 | PCM.PROG ---
Date Seen by Provider: 07/10/21 Time Seen by Provider: 09:05 Subjective: feeling fine. wants to go home with Oxygen for mild SOB on exertion Objective: Vitals: T=97.3 F, P=50, R=14, QO=534/69, SPO2=94 HEENT: []wnl Neck: []supple Lungs: [] minimal rhonchi. no acute resp distress. CVS: []rrr. Abdomen: []benign Extremities: []no acute abnormality. Neurological: []non-focal Skin: []no acute rash or jaundice. Lab/Tests/Diagnostic Imaging: []See reports. (1) Pneumonia due to COVID-19 virus: Status: Acute Code(s): U07.1 - COVID-19; J12.82 - Pneumonia due to coronavirus disease 2018 SNOMED Code(s): 106808712313775434 Plan: Home today with home Oxygen. Rx Levaquin; Albuterol MDI; Spiriva MDI; Medrol dose-piero; Mucinex DM. PCP in 1-2 days.
[2021-07-11 07:14] LABS: C-REACTIVE PROTEIN 2 mg/L (0-10)
--- NOTE | 2021-08-11 13:12 | PCM.DC ---
Final Diagnosis: Covid-19 Pneumonia (1) Pneumonia due to COVID-19 virus: Status: Acute Code(s): U07.1 - COVID-19; J12.82 - Pneumonia due to coronavirus disease 2019 SNOMED Code(s): 051408689227025417 Reason for Hospitalization: Pt had mild persistent SOB and improved with inpatient care. Labs and imaging findings were improved. Prognosis/Condition at Discharge: Pt prognosis is un-certain. Pt was stable at discharge. Medications at Discharge: Ambulatory Orders Medication Instructions Recorded levothyroxine 100 mcg tablet 100 mcg PO DAILY 11/01/15 (Synthroid) metformin 500 mg 24 hr 500 mg PO BID 03/25/17 tablet,extended release hydrocodone 10 mg-acetaminophen 1 tab PO QID PRN 08/14/20 325 mg tablet docusate sodium 100 mg capsule 100 - 300 mg PO BEDTIME PRN 07/05/21 ergocalciferol (vitamin D2) 1,250 50,000 unit PO WEEKLY 07/05/21 mcg (50,000 unit) capsule (Vitamin D2) furosemide 20 mg tablet 40 mg PO DAILY PRN 07/05/21 gabapentin 300 mg capsule 300 mg PO DAILY 07/05/21 gabapentin 300 mg capsule 600 mg PO BEDTIME 07/05/21 insulin glargine 100 unit/mL (3 24 unit SUBCUT BEDTIME 07/05/21 mL) subcutaneous pen (Basaglar KwikPen U-100 Insulin) omeprazole 20 mg capsule,delayed 20 mg PO DAILY 07/05/21 release polyethylene glycol 3350 17 17 g PO DAILY PRN 07/05/21 gram/dose oral powder albuterol sulfate 90 mcg/actuation 2 puff INHALATION QID PRN #90 mcg 07/10/21 aerosol inhaler (ProAir HFA) cholecalciferol (vitamin D3) 25 5,000 unit PO DAILY tab 07/10/21 mcg (1,000 unit) tablet dextromethorphan-guaifenesin 30 1 tab PO Q12H #20 tab 07/10/21 mg-600 mg tablet extended [id number] hr (Mucinex DM) famotidine 20 mg tablet 40 mg PO BIDAC tab 07/10/21 levofloxacin 750 mg tablet 750 mg PO Q12H #14 tab 07/10/21 methylprednisolone 4 mg tablets in See Rx Instructions .ROUTE 07/10/21 a dose pack (Medrol (Neal)) .COMPLEX #21 ea zinc sulfate 50 mg zinc (220 mg) 220 mg PO DAILY cap 07/10/21 capsule (Zinc-220) carbamazepine 200 mg tablet 200 mg PO TID PRN #30 tab 07/31/21 (Tegretol) ofloxacin 0.3 % ear drops 4 drp LEFTEAR BID 7 Days #10 ml 07/31/21 Lab/Diagnostics: See reports. Education Provided to Patient and Family: See discharge orders. Follow-ups: PMD in 1-2 days. Discharge Disposition: Home Hospital Course: Pt gradually improved and VSS with no acute fever. Pt wanted to go home. Plan: Home. Continue home Rx. Early PMD f/u.
== END 2021-07-10 11:04 | disposition home or self-care (01) | DRG 177 ==
LOC: ED 10:49 → MEDSURG B 16:03 → SCU 07-08 08:07
PROVIDERS: ADMIT Emergency Medicine; ATTEND Emergency Medicine
DX: R11.10 Vomiting, unspecified; U07.1 COVID-19; R19.7 Diarrhea, unspecified; J12.82 Pneumonia due to coronavirus disease 2019; R06.02 Shortness of breath

== ENCOUNTER 2025-04-14 16:21 | Observation (INO) ==
[2025-04-14 16:35] LABS: IMMATURE GRANULOCYTE # (AUTO) 0.1 (0.0-1.0); IMMATURE GRANULOCYTE % (AUTO) 0.6 % (0.0-5.0); RDW COEFFICIENT OF VARIATION 15.2 % (11.6-14.8)
--- NOTE | 2025-04-14 16:45 | ED.PDOC ---
General [facility] ED Provider: Dr. ESA RENNER MD Chief Complaint: Bite Stated Complaint: Patient is a 59-year-old female that reported to the emergency department for an insect bite with cellulitis on the back of her right calf. Patient stated that this happened sometime on Friday. Patient stated that initially it was a small area however for the past day it has increasingly gotten bigger. Patient stated that she contacted her primary care doctor who ordered her clindamycin. She had also been instructed to put antibiotic ointment on it and she stated that she tried but it was too painful to put antibiotic ointment on it. Patient stated that she picked her clindamycin up this morning and has had 1 dose. Patient stated that she has been hot thinking that she may have had a fever a couple times and has taken Tylenol. Patient also stated that she has had chills with her symptoms. Patient also stated that the area is itching her. Patient states that touching the area makes his symptoms worse. Patient stated that nothing makes it better. Patient denies any other acute symptoms at the current time. Patient's vital signs are stable. Patient's GCS is 15. Time Seen by Provider: 04/14/25 16:23 Mode of Arrival: Walk-In Information Source: Patient Exam Limitations: No limitations Primary Care Provider: AJAY CHENG Nursing and Triage Documentation Reviewed and Agree: Yes Opioid Naive vs. Tolerant What is Opioid Naive?: *Opioid Naive implies the patient is not already taking opioids or not chronically receiving opioids on a daily basis. *PRN dosing is not "usually" associated with tolerance. *Patients are at higher risk of over-sedation and aspiration. What is Opioid Tolerant?: *Opioid Tolerance implies less than the expected response to an opioid. *Acquired tolerance is defined by the patient taking 60mg of oral morphine daily (or equianalgesic dose of another opioid) for 1 week or more. *Often associated with chronic pain. *May take more than usual dose to achieve desired pain control. Review of Systems Review Of Systems Constitutional: Reports No symptoms Skin: Reports Lesions (Bug bite with cellulitis) All Other Systems: Reviewed and Negative [facility] Medical History Hypothyroidism for years E03.9 - Hypothyroidism, unspecified (ICD-10) Insulin dependent type 2 diabetes mellitus for years E11.9 - Type 2 diabetes mellitus without complications (ICD-10) Diabetic nephropathy E11.21 - Type 2 diabetes mellitus with diabetic nephropathy (ICD-10) Osteoarthritis M19.90 - Unspecified osteoarthritis, unspecified site (ICD-10) Hypothyroidism for years E03.9 - Hypothyroidism, unspecified (ICD-10) Diabetes mellitus for years E11.9 - Type 2 diabetes mellitus without complications (ICD-10) Family History Mother Lung cancer FATHER Esophageal cancer FATHER Lung cancer, Onset Age: 60 Social History Smoking and tobacco status: Former smoker Alcohol intake: never Substance use type: does not use Housing: house Seatbelt use: always Drives intoxicated or rides with intoxicated local city driver: No Water heater temperature set < 120 degrees: Yes Working smoke detector in home: Yes Fire extinguisher in home: Yes Carbon monoxide detector in home: Yes Surgical History Mastoidectomy 10 years History of section 12 years Z98.891 - History of uterine scar from previous surgery (ICD-10) Status post endovenous radiofrequency ablation (RFA) of saphenous vein 10 years ago Z98.890 - Other specified postprocedural states (ICD-10) Female Reproductive History Menstrual Hx Hysterectomy: No Hx Tubal Ligation: No Physical Exam Physical Exam Appearance: Reports Well-appearing, No pain distress and Well-nourished Ill-appearing: None Pain Distress: None Eyes: Reports DENNY, EOMI and Conjunctiva clear ENT: Reports Nose normal and Oropharynx normal Neck: Supple Respiratory: Reports Airway patent, Breath sounds clear, Breath sounds equal and Respirations nonlabored Cardiovascular: Reports RRR, Pulses normal, No rub and No murmur GI/: Reports Soft, Nontender and Bowel sounds normal Musculoskeletal: Reports Normal strength, ROM intact and Calf tenderness (Patient has right calf tenderness with cellulitis. See skin note for cellulitis measurements. Marry sign positive right leg.) Skin: Reports Warm, Dry and Other (Cellulitis of right calf is approximately 7 cm wide by 4 cm height in the area where the bug had bitten her (with a 2 cm x 2 cm blister). The erythema extends approximately 42 cm height by approximately 10 cm wide.) Neurological: Reports Sensation intact, Motor intact, Reflexes intact, Cranial nerves intact, Alert and Oriented Psychiatric: Reports Affect appropriate and Mood appropriate Physician Progress Note Physician Progress Note: Patient is a 59-year-old female that reported to the emergency department for an insect bite with cellulitis on the back of her right calf. Patient stated that this happened sometime on Friday. Patient stated that initially it was a small area however for the past day it has increasingly gotten bigger. Patient stated that she contacted her primary care doctor who ordered her clindamycin. She had also been instructed to put antibiotic ointment on it and she stated that she tried but it was too painful to put antibiotic ointment on it. Patient stated that she picked her clindamycin up this morning and has had 1 dose. Patient stated that she has been hot thinking that she may have had a fever a couple times and has taken Tylenol. Patient also stated that she has had chills with her symptoms. Patient also stated that the area is itching her. Patient states that touching the area makes his symptoms worse. Patient stated that nothing makes it better. Patient denies any other acute symptoms at the current time. Patient's vital signs are stable. Patient's GCS is 15. - Due to patient's positive Homans' sign in the right calf will order ultrasound to rule out DVT. - Will give the patient IV vancomycin 1.5 g and IV ceftriaxone 2 g for cellulitis as patient has failed outpatient treatment for cellulitis. - Ultrasound of the right lower extremity negative for DVT. -Spoke to the hospitalist at [facility], who is agreed to accept this patient for IV antibiotics for patient's right leg cellulitis. Patient's vital signs are stable at time of admission. She stated that she wanted to place the patient on observational admission. Course Course 04/14/25 16:30 04/14/25 16:30 Orders, Labs, Meds: Lab Review 04/14/25 16:30 WBC 8.97 RBC 4.72 Hgb 12.7 Hct 41.7 MCV 88.3 MCH 26.9 L MCHC 30.5 L RDW Coeff of Danny 15.2 H Plt Count 281 Immature Gran % (Auto) 0.6 Neut % (Auto) 67.7 Lymph % (Auto) 15.9 [place] % (Auto) 7.4 Eos % (Auto) 8.1 H Baso % (Auto) 0.3 Neut # (Auto) 6.1 Lymph # (Auto) 1.4 [place] # (Auto) 0.7 Eos # (Auto) 0.7 Baso # (Auto) 0.0 Immature Gran # (Auto) 0.1 Sodium 141.2 Potassium 4.26 Chloride 103.3 Carbon Dioxide 27.7 Anion Gap 14.46 BUN 12.3 Creatinine 0.95 Estimated GFR (MDRD) 61.00 BUN/Creatinine Ratio 12.94 Glucose 153.7 H Calcium 8.79 Orders Category Date Time Status BMP [BASIC METABOLIC PANEL] Stat LAB 04/14/25 16:30 Completed CBC W/ AUTO DIFF Stat LAB 04/14/25 16:30 Completed Ceftriaxone 1 gm Vial [Rocephin 1 gm Vial] Meds 04/14/25 16:40 Discontinued 2 gm IVP ONCE ONE Diphenhydramine Inj [Benadryl] Meds 04/14/25 17:05 Discontinued 25 mg IVP ONCE STA Vancomycin/Water For Inj (Peg) [Vancomycin 1.5 Gram/300 Meds 04/14/25 16:40 Discontinued ml Premix] 1.5 gm in 300 ml IV ONCE US VENOUS SCAN RT LEG [U/S VENOUS SCAN RT LEG] Stat RADS 04/14/25 17:04 Completed Medications Discontinued Medications Generic Name Dose Route Start Last Admin Trade Name Freq PRN Reason Stop Dose Admin Ceftriaxone Sodium 2 gm 04/14/25 16:40 04/14/25 17:56 Ceftriaxone 1 Gm Vial IVP 04/14/25 16:41 2 gm ONCE ONE Administration Diphenhydramine HCl 25 mg 04/14/25 17:05 04/14/25 17:54 Diphenhydramine Inj 50 Mg/Ml Vial IVP 04/14/25 17:06 25 mg ONCE STA Administration VANCOMYCIN/WATER FOR INJ (PEG) 1.5 gm in 300 mls @ 200 mls/hr 04/14/25 16:40 04/14/25 18:04 Vancomycin 1.5 Gram/300 Ml Premix IV 04/14/25 18:09 200 mls/hr ONCE ONE Administration Vital Signs: Temp Pulse Resp BP Pulse Ox 04/14/25 16:26 98.5 F 88 20 163/88 H 99 Discharge Plan Discharge Patient Disposition: PLACED OBSERVATION Discharge Problem: Cellulitis of leg, right Did you review [place] TELEMARKETING MANAGER for ALL controlled substances?: Not Applicable ED Provider: ESA RENNER Condition: Stable
[2025-04-14 16:50] LABS: CREATININE 0.95 mg/dL (0.60-1.30)
[2025-04-14] MEDS: BENADRYL IVP STA (17:54)
[2025-04-14] MEDS: ROCEPHIN 1 GM VIAL IVP ONE (17:56)
--- NOTE | 2025-04-14 18:02 | US ---
EXAM: RIGHT LOWER EXTREMITY DEEP VENOUS ULTRASOUND WITH DOPPLER IMAGING HISTORY: Right leg pain and swelling. TECHNIQUE: Elmore-scale ultrasound with compression maneuvers and color and spectral Doppler ultrasound at rest and with augmentation of the veins was performed. Images were obtained and stored in a permanent archive. COMPARISON: None. FINDINGS: RIGHT LOWER EXTREMITY: Common Femoral Vein: Normal compression. Normal flow on color Doppler images. Normal response to augmentation. Deep Femoral Vein: Normal compression. Normal flow on color Doppler images. Normal response to augmentation. Femoral Vein: Normal compression. Normal flow on color Doppler images. Normal response to augmentation. Popliteal Vein: Normal compression. Normal flow on color Doppler images. Normal response to augmentation. Peroneal Vein: Normal compression. Normal flow on color Doppler images. Posterior Tibial Vein: Normal compression. Normal flow on color Doppler images. Anterior Tibial Vein: Normal compression. Normal flow on color Doppler images. Greater Saphenous Vein (Superficial): Normal compression. Normal flow on color Doppler images. Other: No reflux. IMPRESSION: 1. No deep venous thrombosis (DVT) in the right lower extremity. 2. No superficial venous thrombosis (SVT) in the right lower extremity. *Note: Anticoagulation for SVT can be considered only if greater than or equal to 5 cm in length. (https://journal.chestnet.org/article/[email or web address]/[email or web address]=[email or web address])
[2025-04-14] MEDS: VANCOMYCIN 1.5 GRAM/300 ML PREMIX 1.5 GM/300 ML BAG IV ONE (18:04)
[2025-04-14] MEDS ORDERED: TYLENOL PO PRN (20:32)
[2025-04-14] MEDS ORDERED: ZOFRAN SDV IVP PRN (20:32)
[2025-04-14] MEDS ORDERED: NORCO 5-325 PO PRN (20:32)
[2025-04-14 20:48] VITALS: BMI 64.1
[2025-04-14] MEDS ORDERED: VENTOLIN HFA IH PRN (21:46)
[2025-04-14] MEDS ORDERED: NEURONTIN PO SCH (22:22)
[2025-04-14] MEDS: NEURONTIN PO SCH ×2 (23:11→23:37)
[2025-04-14] MEDS: SINGULAIR PO SCH (23:11)
[2025-04-14] MEDS: ANCEF IVP SCH (23:11)
[2025-04-14] MEDS: NORCO 10-325 PO PRN (23:11)
[2025-04-14] MEDS: ANCEF 1 GM/50 ML D5W 2 GM/100 ML BAG IV SCH (23:36)
[2025-04-15 01:26] VITALS: RESP 18
[2025-04-15] MEDS: PEPCID PO SCH (05:07)
[2025-04-15] MEDS: SYMBICORT 160-4.5 MCG INHALER IH SCH (05:07)
[2025-04-15] MEDS: SYNTHROID PO SCH (05:07)
[2025-04-15] MEDS: SPIRIVA IH SCH (05:08)
[2025-04-15 05:13] LABS: IMMATURE GRANULOCYTE # (AUTO) 0.0 (0.0-1.0); IMMATURE GRANULOCYTE % (AUTO) 0.3 % (0.0-5.0); RDW COEFFICIENT OF VARIATION 15.3 % (11.6-14.8)
[2025-04-15] MEDS: MOTRIN PO PRN (05:18)
[2025-04-15 05:24] LABS: CREATININE 0.78 mg/dL (0.60-1.30)
[2025-04-15] MEDS ORDERED: NEURONTIN PO SCH (09:00)
[2025-04-15] MEDS: NEURONTIN PO SCH (09:18)
[2025-04-15] MEDS: MAG-OX PO SCH (09:18)
--- NOTE | 2025-04-15 09:33 | PCM.SS ---
Provider Provider: ALIX DAVISON PA-C, [facility] Ad[facility] Date Admission Date: 04/14/25 Discharge Date Discharge Date: 04/15/25 Primary Care Physician Primary Care Physician: AJAY CHENG Chief Complaint Reason For Visit: RT. LEG CELLULITIS History of Present Illness History of Present Illness: Admitted 04/14/25 19:04, this 59 year old /WHITE/F with pmh of dm2, sleep apnea, afib, hypothyroidism presented to the ER with complaints of redness and swelling to RLE. States it started 2 days ago and progressively worsened. States she thought she was bit by something but unsure. Denies any fever since redness started. Labs mainly unremarkable. Admitted to med/surg observation. Upon exam, patient states that pain to area is much improved and feels that the swelling is better. Does not feel redness has improved just yet. [facility] Medical History Glaucoma H40.9 - Unspecified glaucoma (ICD-10) Chronic ear infection H66.90 - Otitis media, unspecified, unspecified ear (ICD-10) Atrial fibrillation I48.91 - Unspecified atrial fibrillation (ICD-10) Hypothyroidism for years E03.9 - Hypothyroidism, unspecified (ICD-10) Insulin dependent type 2 diabetes mellitus for years E11.9 - Type 2 diabetes mellitus without complications (ICD-10) Diabetic nephropathy E11.21 - Type 2 diabetes mellitus with diabetic nephropathy (ICD-10) Osteoarthritis M19.90 - Unspecified osteoarthritis, unspecified site (ICD-10) Hypothyroidism for years E03.9 - Hypothyroidism, unspecified (ICD-10) Diabetes mellitus for years E11.9 - Type 2 diabetes mellitus without complications (ICD-10) Surgical History Mastoidectomy 10 years History of section 12 years Z98.891 - History of uterine scar from previous surgery (ICD-10) Status post endovenous radiofrequency ablation (RFA) of saphenous vein 10 years ago Z98.890 - Other specified postprocedural states (ICD-10) Family History Mother Lung cancer COPD (chronic obstructive pulmonary disease) Diabetes Hypertension FATHER Esophageal cancer COPD (chronic obstructive pulmonary disease) Diabetes Hypertension FATHER Lung cancer, Onset Age: 60 Social History Smoking and tobacco status: Former smoker Alcohol intake: never Substance use type: does not use Housing: house Seatbelt use: always Drives intoxicated or rides with intoxicated six horse hitch driver: No Water heater temperature set < 120 degrees: Yes Working smoke detector in home: Yes Fire extinguisher in home: Yes Carbon monoxide detector in home: Yes Medications Mecications: Medications at Discharge (Home Meds & RX) metformin 500 mg tablet 500 mg PO DAILY 11/15/14 levothyroxine 100 mcg tablet (Synthroid) 100 mcg PO DAILY 11/01/15 hydrocodone 10 mg-acetaminophen 325 mg tablet 1 tab PO QID PRN Pain 08/14/20 gabapentin 300 mg capsule 300 mg PO DAILY 07/05/21 gabapentin 300 mg capsule 600 mg PO BEDTIME 07/05/21 albuterol sulfate 90 mcg/actuation aerosol inhaler (ProAir HFA) 2 puff inhalation QID PRN Wheezing #90 mcg 07/10/21 famotidine 20 mg tablet 40 mg (2 x 20 mg) PO BIDAC 07/10/21 tirzepatide 5 mg/0.5 mL subcutaneous pen injector (Mounjaro) 12 mg subcut WEEKLY 04/14/24 cetirizine 10 mg tablet 10 mg PO DAILY 06/05/24 Held on 04/14/25. Instructions: felt worse fluticasone fur. 100 mcg-umeclid 62.5 mcg-vilant 25 mcg inhalat.powder (Trelegy Ellipta) 1 ea inhalation DAILY 06/05/24 magnesium oxide 500 mg PO DAILY 06/05/24 levothyroxine 88 mcg tablet 88 mcg PO .COMPLEX 04/14/25 montelukast 10 mg tablet 10 mg PO .NIGHTLY 04/14/25 Allergies Allergies Allergy/AdvReac Type Severity Reaction Status Date / Time codeine AdvReac Rash Verified 04/14/25 16:31 Review of Systems Constitutional: Denies Fever, Chills or Sweats Head: Reports Normocephalic Eyes: Reports No symptoms Ears: Reports No symptoms Nose: Reports No symptoms Mouth: Reports No symptoms Throat: Reports No symptoms Cardiovascular: Reports No symptoms Respiratory: Reports No symptoms Gastrointestinal: Reports No symptoms Genitourinary: Reports No Symptoms Musculoskeletal: Reports No symptoms Dermatologic: Reports Skin Changes (Redness to RLE) Endocrine: Reports No symptoms Hematology: Reports No symptoms Immunology: Reports No symptoms Neurological: Reports No symptoms Psychiatric: Reports No symptoms Physical Examination Appearance: Positive No Apparent Distress, Alert and Oriented x3 and Obese Head: Positive Normocephalic Eyes: Positive Not Examined ENT: Positive Not Examined Neck: Positive Supple, Non-Tender, No Masses and Trachea Midline Heart: Positive RRR and No Murmurs Respiratory: Positive Airway patent, Breath Sounds Clear, Bilaterally, Breath Sounds Equal and Respirations Nonlabored GI/: Positive Soft, Nontender, Bowel sounds normal and No Distention Extremities: Positive Pedal Pulses Palpable Bilaterally and Other (redness extending below the R knee to ankle area anteriorly and posteriorly; negative aram's sign); Negative Edema Neurological: Positive Normal Gait, Sensation Intact, Motor Intact, Reflexes Intact, Alert and Oriented Psychiatric: Positive Normal Judgement Vital Signs (Last 4 Hours) Vital Signs Last 4 Hours: Vital Signs: Last 4 Hours 04/15/25 06:00 04/15/25 07:00 04/15/25 07:00 Oxygen Delivery Method Room Air Room Air Telemetry Type Remote Telemetry Telemetry Monitoring Continues Irregular Telemetry Rate (Approximate) 80-90 BPM Telemetry Heart Rate 89 EKG HI Interval 0.12 EKG QRS Interval 0.07 Telemetry Strip Reading NSR 04/15/25 08:00 04/15/25 09:00 Oxygen Delivery Method Room Air Room Air Telemetry Type Telemetry Monitoring Irregular Telemetry Rate (Approximate) Telemetry Heart Rate EKG HI Interval EKG QRS Interval Telemetry Strip Reading Labs This Visit Labs This Visit: Labs This Visit 04/14/25 04/15/25 16:30 04:42 WBC 8.97 11.93 H RBC 4.72 4.50 Hgb 12.7 12.0 Hct 41.7 39.8 MCV 88.3 88.4 MCH 26.9 L 26.7 L MCHC 30.5 L 30.2 L RDW Coeff of Danny 15.2 H 15.3 H Plt Count 281 286 Immature Gran % (Auto) 0.6 0.3 Neut % (Auto) 67.7 72.3 Lymph % (Auto) 15.9 13.6 [place] % (Auto) 7.4 6.7 Eos % (Auto) 8.1 H 6.8 Baso % (Auto) 0.3 0.3 Neut # (Auto) 6.1 8.6 H Lymph # (Auto) 1.4 1.6 [place] # (Auto) 0.7 0.8 Eos # (Auto) 0.7 0.8 H Baso # (Auto) 0.0 0.0 Immature Gran # (Auto) 0.1 0.0 Sodium 141.2 140.2 Potassium 4.26 4.00 Chloride 103.3 101.8 Carbon Dioxide 27.7 29.2 Anion Gap 14.46 13.20 BUN 12.3 15.3 Creatinine 0.95 0.78 Estimated GFR (MDRD) 61.00 76.00 BUN/Creatinine Ratio 12.94 19.61 Glucose 153.7 H 127.6 H Calcium 8.79 8.65 Total Bilirubin 0.69 AST 40.6 H ALT 38.1 H Alkaline Phosphatase 98.0 Total Protein 7.09 Albumin 3.72 Globulin 3.37 Albumin/Globulin Ratio 1.10 Imaging Imaging: EXAM: RIGHT LOWER EXTREMITY DEEP VENOUS ULTRASOUND WITH DOPPLER IMAGING HISTORY: Right leg pain and swelling. TECHNIQUE: Elmore-scale ultrasound with compression maneuvers and color and spectral Doppler ultrasound at rest and with augmentation of the veins was performed. Images were obtained and stored in a permanent archive. COMPARISON: None. FINDINGS: RIGHT LOWER EXTREMITY: Common Femoral Vein: Normal compression. Normal flow on color Doppler images. Normal response to augmentation. Deep Femoral Vein: Normal compression. Normal flow on color Doppler images. Normal response to augmentation. Femoral Vein: Normal compression. Normal flow on color Doppler images. Normal response to augmentation. Popliteal Vein: Normal compression. Normal flow on color Doppler images. Normal response to augmentation. Peroneal Vein: Normal compression. Normal flow on color Doppler images. Posterior Tibial Vein: Normal compression. Normal flow on color Doppler images. Anterior Tibial Vein: Normal compression. Normal flow on color Doppler images. Greater Saphenous Vein (Superficial): Normal compression. Normal flow on color Doppler images. Other: No reflux. IMPRESSION: 1. No deep venous thrombosis (DVT) in the right lower extremity. 2. No superficial venous thrombosis (SVT) in the right lower extremity. *Note: Anticoagulation for SVT can be considered only if greater than or equal to 5 cm in length. Review Review Statement: I have independently reviewed and interpreted the labs/EKGs/imaging that were ordered by the ER provider. I have reviewed all outside records that are available currently in our EMR including imaging/notes/labs from previous visits. Plan Reccomendations/Plan: 1. Cellulitis to R lower extremity - started on ancef 2G Q8H, MRSA swab obtained, no open area to culture with drainage. Patient requesting discharge home if able. Has not had fever. VSS. Labs stable. D/c with oral amoxicillin 875 twice a day for course of 7 days total with IV medications. Discussed warning signs to return to ER. Patient and daughter at bedside verbalized understanding. Additional Planning: Case discussed with ED Physician, Dr. Sesay. DVT Prophylaxis: Ambulatory Disposition: Admit to: Med/Surg Observation Full Code. Discussed Plan of Care with Dr. Kelin Wei. If patient discharged with Left Ventricular Systolic Dysfunction: na Discharged with a beta hill? [] If no, why not? [] Discharged with an evette/arb? [] If no, why not? [] Review With Patient Reviewed with Patient and Family: Patient and family have been counseled on condition and care plan and have no immediate questions. I have personally discussed and reviewed the patient's visit/current labs/imaging/decision making with Dr. Kenya Wei, my supervising attending. Total number of minutes spent with patient 85 min. More than 50% of the time spent with this patient was devoted to counseling and coordination of care. Time of Admission:04/14/25 19:04 Time of Discharge: 04/15/25 09:45 Discharge Plan Discharge Discharge Orders: Discharge Patient (ONCE); Ordered 04/15/25 Ordered By: RICKEY HADLEY Activity Restrictions/Additional Instructions: Diagnosis: Cellulitis Diet: Diabetic Activity: as tolerated Medications: [facility] 2 * Amoxicillin 875 mg - take twice a day, next dose this evening Follow-up with primary care provider next week. Instructions: Cellulitis (ED) Patient Disposition: HOME SELF-CARE Prescriptions: New amoxicillin 875 mg tablet 875 mg PO BID Qty: 13 0RF Rx Instructions: Next dose this evening, take with food Continued metformin 500 MG tablet 500 mg PO DAILY hydrocodone-acetaminophen 10-325 mg tablet 1 tab PO QID PRN (Reason: Pain) Patient Comments: TK 1 T PO QID PRF SEVERE PAIN magnesium oxide 500 mg magnesium tablet 500 mg PO DAILY Trelegy Ellipta 100-62.5-25 mcg blister with device 1 ea inhalation DAILY gabapentin 300 mg capsule 300 mg PO DAILY gabapentin 300 mg capsule 600 mg PO BEDTIME famotidine 20 mg Tablet 40 mg PO BIDAC 0RF albuterol sulfate [ProAir HFA] 90 mcg/actuation Hfa Aerosol Inhaler 2 puff INHALATION QID PRN (Reason: Wheezing) Qty: 90 0RF Mounjaro 5 mg/0.5 mL pen injector 12 mg SUBCUT WEEKLY levothyroxine 88 mcg tablet 88 mcg PO .COMPLEX Rx Instructions: 88 mcg orally 6 DAYS A WEEK; montelukast 10 mg tablet 10 mg PO .NIGHTLY Discontinued levothyroxine [Synthroid] 100 MCG tablet 100 mcg PO DAILY cetirizine 10 mg tablet 10 mg PO DAILY Did you review [place] SENIOR QUALITY MANAGER for ALL controlled substances?: No Discussed opioids are addictive and Narcan is available by prescription or from pharmacy.: No Condition: Stable
[2025-04-15 10:08] VITALS: BP 119/84; PULSE 77; TEMP 97.3
[2025-04-15] MEDS ORDERED: SINGULAIR PO SCH (21:00)
== END 2025-04-15 10:56 | disposition home or self-care (01) ==
LOC: ED 16:21 → MEDSURG B 16:21
PROVIDERS: ADMIT Hospitalist; ATTEND Physician Assistant